=== PATIENT | female | born 1980 | race African-American/Black ===

== ENCOUNTER → 2016-07-12 | Outpatient (CLI) | payer MEDICAID | LOC: WI 09:30 | PROVIDERS: ATTEND Physician Assistant | DX: Z12.31 Encounter for screening mammogram for malignant neoplasm of breast (principal); Z80.3 Family history of malignant neoplasm of breast | CPT/HCPCS: 77067; G0202 ==

== ENCOUNTER 2016-10-23 11:33 | Emergency (ER) | payer OTHER ==
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
[2016-10-23 13:50] VITALS: BP 120/71
== END 2016-10-23 13:51 | disposition home or self-care (01) ==
LOC: ER 11:33
DX: M25.531 Pain in right wrist (principal); M25.572 Pain in left ankle and joints of left foot; M62.838 Other muscle spasm; V49.40XA Driver injured in collision with unspecified motor vehicles in traffic accident, initial encounter; Z87.891 Personal history of nicotine dependence
CPT/HCPCS: 99284